=== PATIENT | male | born 1965 ===

== ENCOUNTER 2020-11-25 16:42 | Emergency (ER) | payer SELFPAY ==
--- NOTE | 2020-11-25 16:55 | NUR ---
NO ANSWER WHEN CALLED FOR TRIAGE AT [id number].
--- NOTE | 2020-11-25 17:10 | NUR ---
NO ANSWER WHEN CALLED FOR TRIAGE AT 1710.
--- NOTE | 2020-11-25 17:25 | NUR ---
NO ANSWER WHEN CALLED FOR TRIAGE AT 1725.
== END 2020-11-25 17:36 | disposition left against medical advice (07) ==
LOC: ED 17:00
DX: M25.532 Pain in left wrist (principal); Z53.21 Procedure and treatment not carried out due to patient leaving prior to being seen by health care provider